=== PATIENT | female | born 1935 | race Caucasian/White ===

== ENCOUNTER 2020-08-09 17:19 | Inpatient (IN) | payer MEDICARE, BC ==
[~2020-08-09] VITALS: Ht 167.6 cm; Wt 75.7 kg
[2020-08-09 18:01] LABS: BASOPHILS % (AUTO) 0.8 % (0.0-2.0); EOSINOPHILS % (AUTO) 2.7 % (0.0-6.0); HEMATOCRIT 40 % (33-45); LYMPHOCYTES # (AUTO) 1.6 /CMM (0.8-4.8); LYMPHOCYTES % (AUTO) 46.2 % (20.0-44.0); MEAN CORPUSCULAR HGB CONC 33 g/dl (31.0-36.0); MEAN CORPUSCULAR VOLUME 96 fL (82-100); MONOCYTES # (AUTO) 0.5 /CMM (0.1-1.30); MONOCYTES % (AUTO) 14.3 % (2.0-12.0); NEUTROPHILS # (AUTO) 1.3 /CMM (1.8-8.9); PLATELET COUNT (AUTO) 200 /CMM (150-450); RED BLOOD CELL COUNT(AUTO) 4.18 MIL/uL (4.0-5.2); WHITE BLOOD COUNT (AUTO) 3.5 K/uL (4.3-11.0)
[2020-08-09 18:12] LABS: CALCIUM, SERUM 8.8 mg/dL (8.5-10.1); CARBON DIOXIDE 27 mmol/L (21-32); CHLORIDE 106 mmol/L (98-107); CREATININE 1.6 mg/dL (0.6-1.3); GLUCOSE 96 mg/dL (74-106); POTASSIUM 4.1 mmol/L (3.5-5.1); SODIUM SERUM 141 mmol/L (136-145); UREA NITROGEN, BLOOD 28 mg/dL (7-18)
[2020-08-09 18:26] LABS: ALANINE AMINOTRANSFERASE 14 U/L (12-78); ALBUMIN 3.3 g/dL (3.4-5.0); ALCOHOL, BLOOD < 3 mg/dL (0-0); ALKALINE PHOSPHATASE 94 U/L (46-116); ASPARTATE AMINOTRANSFERASE 16 U/L (15-37); BILIRUBIN,DIRECT 0.1 mg/dL (0.0-0.2); BILIRUBIN,TOTAL 0.4 mg/dL (0.2-1.0); TOTAL PROTEIN, SERUM 6.9 g/dL (6.4-8.2)
[2020-08-09 18:28] LABS: ACETAMINOPHEN < 2 ug/ml (10-30)
[2020-08-09] MEDS ORDERED: SENN-146 PO (18:37)
[2020-08-09] MEDS ORDERED: ABH GEL TOP (18:37)
[2020-08-09] MEDS ORDERED: FURO-145 PO (18:37)
[2020-08-09] MEDS ORDERED: CRAN425C6 PO (18:37)
[2020-08-09] MEDS ORDERED: ACET325T53 PO ×2 (18:37)
[2020-08-09] MEDS ORDERED: MENT1LOZ PO (18:37)
[2020-08-09] MEDS ORDERED: LIDO1ADH78 TD (18:37)
[2020-08-09] MEDS ORDERED: GABA-536 PO (18:37)
[2020-08-09] MEDS ORDERED: AMIO200T5 PO (18:37)
[2020-08-09] MEDS ORDERED: CITA20TA16 PO (18:37)
[2020-08-09] MEDS ORDERED: MELA3TAB41 PO (18:37)
[2020-08-09] MEDS ORDERED: QUET25TA PO (18:37)
[2020-08-09] MEDS ORDERED: ESOM20CA PO (18:37)
[2020-08-09] MEDS ORDERED: LORA-259 PO (18:37)
[2020-08-09] MEDS ORDERED: RIVA1PAT3 TD (18:37)
[2020-08-09] MEDS ORDERED: LACT-58 PO (18:37)
[2020-08-09] MEDS ORDERED: WARF4TAB72 PO (18:37)
[2020-08-09] MEDS ORDERED: MAGN1TAB4 PO (18:37)
[2020-08-09] MEDS ORDERED: MEMA10TA PO (18:37)
[2020-08-09] MEDS ORDERED: NITR100C PO (18:37)
[2020-08-09] MEDS ORDERED: ONDA4TAB5 PO (18:37)
[2020-08-09] MEDS ORDERED: WARF-68 PO (18:37)
[2020-08-09] MEDS ORDERED: POTA20TA83 PO (18:37)
[2020-08-09] MEDS ORDERED: QUET50TA PO (18:37)
[2020-08-09] MEDS ORDERED: TRAZ-182 PO (18:37)
[2020-08-09] MEDS ORDERED: PRAV20TA4 PO (18:37)
--- NOTE | 2020-08-09 18:40 | NUR ---
PER NURSING SUP, NO NEED TO REPEAT URINE AND COVID TEST AT THIS TIME. DR. FRENCH AWARE. PATIENT IS MEDICALLY CLEARED FOR GPS ADMISSION.
--- NOTE | 2020-08-09 18:54 | NUR ---
RUI RN AT BEDSIDE FOR EVAL.
--- NOTE | 2020-08-09 19:16 | NUR ---
COVID SWAB DONE AND SENT TO THE LAB
--- NOTE | 2020-08-09 19:41 | NUR ---
REPORT GIVEN TO BHAVIK ELISE FOR KATTY.
--- NOTE | 2020-08-09 20:17 | NUR ---
COVID NEGATIVE PER LAB
[2020-08-09 20:30] VITALS: BP 161/75
--- NOTE | 2020-08-09 20:30 | NUR ---
GPS RN NOTES PT ARRIVED VIA GURNEY ESCORTED BY TWO RNS. PT WAS BROUGHT IN TO ER BY SON PT IS FROM [place] [facility]IA [facility]. PT ON 5150 HOLD FOR DTS AND GD. PER HOLD PT WAS WAS VERBALLY ABUSIVE TO STAFF, THROWING THINGS AT STAFF, SCRATCHING STAFF AND REFUSING MEDICATIONS PT WAS UNABLE TO REDIRECTED. UPON FACE TO FACE ASSESSMENT PT IS NOTED TO BEING COOPERATIVE,,DISORGANIZED CONFUSED A/O X1-2. PT IS CURRENTLY LYING IN BED AWAKE HAS NO S/S OR COMPLAINTS OFPAIN. PT DISPLAYS NO APPARENT DISTRESS. PT BREATHING IS UNLABORED WITH EQUAL RISE AND FALL OF CHEST. PT IS ON ROOM AIR TOLERATING WELL. PT ASSISTED WITH TURNING AND REPOSITIONING NEEDED FOR COMFORT. PT BELONGINGS WERE INVENTORIED AND CHECKED FOR CONTRABAND. PT REQUESTED TO KEEP HER EARRINGS AND RING ON HER LEFT HAND. PT HAS NO NEEDS AT THIS TIME. PT DENIES ANY SI/HI AT THIS TIME. ALL OCNTRABAND REMOVED AND STORED IN PT LOCKER. PT SKIN ASSESSMENT COMPLETED. PT ORIENTED TO ROOM AND UNIT. PT EDUCATED ONT HE USE OF THE CALL COLBERT. PT BED SIDE RAILS ARE UP X2 FOR SAFTEY. PT BED IS LOCKED IN POSITION AND LOW WILL CONTINUE TO MONITOR PT Q15MIN WITH THE HELP OF NURSING STAFF TO MAINTAIN SAFETY. Addendum: 08/10/20 at 0156 by REED LINCOLN RN PT REFUSED TO SIGN PAPERWORK. PT ADVISED ON HOLD AND PT RIGHTS BOOKLET GIVEN. PT PERSON TO NOTIFY WILL BE CONTACTED IN THE MORNING.
[2020-08-09] MEDS ORDERED: BLOOD SUGAR DIAGNOSTIC 1 EACH STRIP IN ONE (21:00)
[2020-08-09] MEDS ORDERED: MAGNESIUM HYDROXIDE 30 ML UDC PO PRN (21:00)
[2020-08-09] MEDS ORDERED: MAG HYDROX/AL HYDROX/SIMETH 30 ML UDC PO PRN (21:00)
[2020-08-09 23:36] VITALS: BP 141/75
--- NOTE | 2020-08-10 06:39 | NUR ---
GPS RN NOTES ATTEMPTED TO CONTACT [facility]IBLE [employer] UNABLE TO CONTACT NO ONE PICKED UP THE PHONE. WILL ENDORSE TO DAY SHIFT TO TRY AGAIN.
[2020-08-10 06:50] LABS: ALBUMIN 3.2 g/dL (3.4-5.0); BILIRUBIN,TOTAL 0.7 mg/dL (0.2-1.0); CALCIUM, SERUM 8.7 mg/dL (8.5-10.1); CREATININE 1.2 mg/dL (0.6-1.3); TOTAL PROTEIN, SERUM 6.8 g/dL (6.4-8.2)
[2020-08-10 06:58] LABS: CHOLESTEROL 185 mg/dL (<200); HDL CHOLESTEROL 69 mg/dL (40-60); LDL 97 mg/dL (0-99); TRIGLYCERIDES 41 mg/dL (30-150)
[2020-08-10 08:00] VITALS: BP 159/77
--- NOTE | 2020-08-10 11:50 | NUR ---
RN-NOTES NOTED PATIENT ANGRY,SCREAMING AND YELLING THROWING HER TRAY ON THE FLOOR. REDIRECTED AND OFFERED ATIVAN BUT PATIENT REFUSED TROW THE MEDICATION ON THE FLOOR.
[2020-08-10] MEDS ORDERED: diphenhydrAMINE HCL 50 MG/ML VIAL IM ONE (12:30)
[2020-08-10] MEDS ORDERED: LORAZEPAM INJ 2 MG/ML VIAL IM ONE (12:30)
[2020-08-10] MEDS ORDERED: HALOPERIDOL LACTATE INJ 5 MG/ML VIAL IM ONE (12:30)
--- NOTE | 2020-08-10 12:31 | NUR ---
RN-NOTES DR. DE ANDA MADE AWARE OF PATIENT BEHAVIOR WITH T.O ORDERS. IM MEDICATIONS WAS ADMINISTERED AT LEFT AND RIGHT DELTOID WITH 3 STAFF ASSIST.
--- NOTE | 2020-08-10 13:10 | NUR ---
RN-NOTES END FINDER TWISTING DEPARTMENT ERIC IN THE UNIT MADE AWARE OF PATIENTS POLST AND ORDERED DNR/DNI. NOTED AND CARRIED OUT.
[2020-08-10 16:00] VITALS: BP 157/87
[2020-08-10] MEDS: RIVASTIGMINE TARTRATE 1.5 MG CAPSULE PO SCH (18:05)
[2020-08-10] MEDS: risperiDONE 1 MG TABLET PO SCH (18:05)
[2020-08-10] MEDS ORDERED: ACETAMINOPHEN 325 MG TABLET PO PRN (19:30)
--- NOTE | 2020-08-10 20:00 | NUR ---
GPS RN NOTE CALLED JUMA VIA OF [facility] (JUSTIN) AND VERIFIED PATIENT'S HOME MEDS: PATIENT IS TAKING PRAVSTATIN 20 20MG WITH NO ALLERGIC REACTIONS. PATIENT ALSO TAKING MACRODANTIN FOR UTI, NO END DATE. NOTIFIED CAMI FROM PHARMACY
[2020-08-10 20:25] VITALS: BP 150/82
[2020-08-10] MEDS ORDERED: WARFARIN SODIUM 2 MG TABLET PO SCH (21:00)
[2020-08-10] MEDS: GABAPENTIN 300 MG CAPSULE PO SCH (21:37)
[2020-08-10] MEDS: AMIODARONE HCL 200 MG TABLET PO SCH (21:38)
[2020-08-10] MEDS: ATORVASTATIN 10 MG TABLET PO SCH (21:41)
[2020-08-10] MEDS ORDERED: NITROFURANTOIN MACROCRYSTAL 100 MG CAPSULE PO SCH (22:00)
--- NOTE | 2020-08-10 23:40 | NUR ---
GPS RN NOTE - PRN MED PATIENT NOTED WITH AGITATION, YELLING, AND THROWING FOOD TO STAFF. NONPHARM INTERVENTIONS TAKEN. ADMINISTERED ATIVAN AND AMBIEN ORDERED. WILL CONTINUE TO MONITOR PATIENT'S BEHAVIOR
[2020-08-10] MEDS: TEMAZEPAM 7.5 MG CAPSULE PO PRN (23:41)
[2020-08-10] MEDS: LORAZEPAM 0.5 MG TABLET PO PRN (23:41)
[2020-08-11] MEDS: RIVASTIGMINE TARTRATE 1.5 MG CAPSULE PO SCH ×2 (05:41→17:24)
--- NOTE | 2020-08-11 06:10 | NUR ---
GPS RN NOTE - UA COLLECTED URINE SPECIMEN VIA STRAIGHT CATH. GAVE SPECIMEN TO INTERNAL WHOLESALER FROM LAB.
--- NOTE | 2020-08-11 06:57 | NUR ---
GPS RN CLOSING NOTE PATIENT SLEEPING IN BED ,A/OX2. TOLERATING ROOM AIR WELL WITH NO SOB IRRITABLE,UNCOOPERATIVE WITH CARE. NO SI/HI AT THIS TIME. DENIES PAIN, DISCOMFORT AT THIS TIME. SAFETY MEASURES IN PLACE: BED IN LOWEST LOCKED POSITION, SIDE RAILS UPX3, EDUCATED TO USE CALL LIGHT, BED ALARMS ON. ALL NEEDS ATTENDED AND ANTICIPATED. WILL ENDORSE CARE PLAN FOR MONITORING FOR SAFETY AND BEHAVIOR TO MORNING RN
[2020-08-11 08:00] VITALS: BP_SYST 159; BP_SYST 164; BP_DIAS 60; BP_DIAS 69
[2020-08-11 08:13] LABS: BILIRUBIN,URINE SMALL (NEGATIVE); COLOR,URINE YELLOW (YELLOW); LEUKOCYTE ESTERASE ,URINE NEGATIVE (NEGATIVE); NITRITE, URINE NEGATIVE (NEGATIVE); PH,URINE 5.5 (5.0-8.0); PROTEIN,URINE NEGATIVE (NEGATIVE); UGLUCOSE NEGATIVE (NEGATIVE); UROBILINOGEN,URINE 0.2 EU/dL (0.2)
[2020-08-11] MEDS: PANTOPRAZOLE 40 MG TABLET.DR PO SCH ×2 (08:28→10:22)
[2020-08-11 08:39] LABS: BACTERIA,URINE Rare /HPF (None Seen); RBC,URINE 0-2 /HPF (0-2); SQUAMOUS EPITHELIAL CELL,UR Few /HPF (None Seen); WBC,URINE 0-2 /HPF (0-3)
[2020-08-11] MEDS ORDERED: SENNOSIDES/DOCUSATE SODIUM 1 UDTAB TABLET PO SCH (09:00)
[2020-08-11] MEDS: FUROSEMIDE 20 MG TABLET PO SCH (10:21)
[2020-08-11] MEDS: MEMANTINE HCL 5 MG TABLET PO SCH (10:21)
[2020-08-11] MEDS: risperiDONE 1 MG TABLET PO SCH ×2 (10:21→21:35)
[2020-08-11] MEDS: POTASSIUM CHLORIDE 20 MEQ TAB.PRT.SR PO SCH (10:22)
[2020-08-11] MEDS: ACETAMINOPHEN 325 MG TABLET PO SCH ×3 (10:22→16:57)
[2020-08-11] MEDS: AMIODARONE HCL 200 MG TABLET PO SCH (10:22)
[2020-08-11] MEDS: ENSURE ENLIVE CHOC 237 ML CAN PO SCH ×3 (10:30→17:24)
--- NOTE | 2020-08-11 12:35 | NUR ---
Family Contact: SW contacted the pts son, Salvador ([phone]), and left a voicemail stating that the SW would like to discuss the pts treatment.
--- NOTE | 2020-08-11 16:01 | NUR ---
Family Contact: KIERSTEN contacted the pts son, Salvador ([phone]), and received collateral information. He stated that he is the DPOA and pt should return to [facility]. Addendum: 08/11/20 at 1601 by KIERSTEN BLACKWELL DPOA
--- NOTE | 2020-08-11 16:05 | NUR ---
Facility Contact: KIERSTEN contacted Keely ([phone]), from [facility], and she stated that she would need to assess the pt before she can return to the facility.
--- NOTE | 2020-08-11 16:12 | NUR ---
RN-NOTES HOTEL STAFF MEMBER ERIC IN THE UNIT AND MADE AWARE OF PATIENT INR RESULT TODAY WITH VERBAL ORDER TO CONT. COUMADIN 4MG P.O TODAY, D/C 2MG COUMADIN ORDER AND START COUMADIN 3MG P.O ON 08/12/20, 08/13/20,AND AN DPT/INR ON 07/2020. NOTED AND CARRIED OUT.
--- NOTE | 2020-08-11 16:33 | NUR ---
Initial Discharge Plan: Pt currently resides at [facility] located at [address] [place] [address]; [phone]. Per DPOA, he wants the pt to return. KIERSTEN will work with the pt and the MD regarding appropriate discharge planning. SW will form a safe and proper discharge.
[2020-08-11] MEDS ORDERED: WARFARIN SODIUM 2 MG TABLET PO SCH (17:00)
[2020-08-11 20:00] VITALS: BP 148/73
[2020-08-11] MEDS: ATORVASTATIN 10 MG TABLET PO SCH (21:35)
[2020-08-11] MEDS: GABAPENTIN 300 MG CAPSULE PO SCH (21:36)
[2020-08-12] MEDS: RIVASTIGMINE TARTRATE 1.5 MG CAPSULE PO SCH ×2 (06:00→17:12)
[2020-08-12 08:00] VITALS: BP 153/78
[2020-08-12] MEDS: ACETAMINOPHEN 325 MG TABLET PO SCH ×3 (08:16→16:23)
[2020-08-12] MEDS: ENSURE ENLIVE CHOC 237 ML CAN PO SCH ×3 (08:16→16:27)
[2020-08-12] MEDS: risperiDONE 1 MG TABLET PO SCH ×2 (08:17→20:38)
[2020-08-12] MEDS: FUROSEMIDE 20 MG TABLET PO SCH (08:17)
[2020-08-12] MEDS: PANTOPRAZOLE 40 MG TABLET.DR PO SCH (08:17)
[2020-08-12] MEDS: MEMANTINE HCL 5 MG TABLET PO SCH (08:17)
[2020-08-12] MEDS: POTASSIUM CHLORIDE 20 MEQ TAB.PRT.SR PO SCH (08:17)
[2020-08-12] MEDS: SENNOSIDES/DOCUSATE SODIUM 1 TAB TABLET PO SCH (08:20)
[2020-08-12 16:00] VITALS: BP 148/77
[2020-08-12] MEDS: WARFARIN SODIUM 1 MG TABLET PO SCH (16:25)
[2020-08-12 20:00] VITALS: BP 156/82
[2020-08-12] MEDS: ATORVASTATIN 10 MG TABLET PO SCH (21:53)
[2020-08-12] MEDS: GABAPENTIN 300 MG CAPSULE PO SCH (21:53)
[2020-08-13] MEDS: LORAZEPAM 0.5 MG TABLET PO PRN (05:20)
--- NOTE | 2020-08-13 05:22 | NUR ---
RN NOTES: ANXEITY PT. SCREAMING YELLING AGGRESSIVE ATIVAN 0.5 MG PO PRN GIVEN , WILL CONTINUE TO MONITOR.
[2020-08-13] MEDS: RIVASTIGMINE TARTRATE 1.5 MG CAPSULE PO SCH ×2 (06:29→17:48)
[2020-08-13 07:03] VITALS: BP 138/72
[2020-08-13 08:00] VITALS: BP 156/96
[2020-08-13] MEDS: POTASSIUM CHLORIDE 20 MEQ TAB.PRT.SR PO SCH (09:21)
[2020-08-13] MEDS: ENSURE ENLIVE CHOC 237 ML CAN PO SCH ×3 (09:21→16:52)
[2020-08-13] MEDS: AMIODARONE HCL 200 MG TABLET PO SCH (09:21)
[2020-08-13] MEDS: FUROSEMIDE 20 MG TABLET PO SCH (09:22)
[2020-08-13] MEDS: MEMANTINE HCL 5 MG TABLET PO SCH (09:22)
[2020-08-13] MEDS: SENNOSIDES/DOCUSATE SODIUM 1 TAB TABLET PO SCH (09:22)
[2020-08-13] MEDS: risperiDONE 1 MG TABLET PO SCH ×2 (09:22→21:18)
[2020-08-13] MEDS: ACETAMINOPHEN 325 MG TABLET PO SCH ×4 (09:22→17:19)
[2020-08-13 16:00] VITALS: BP 147/67
[2020-08-13] MEDS: WARFARIN SODIUM 1 MG TABLET PO SCH (17:19)
[2020-08-13 19:43] LABS: BASOPHILS % (AUTO) 0.2 % (0.0-2.0); EOSINOPHILS % (AUTO) 0.1 % (0.0-6.0); HEMATOCRIT 42 % (33-45); HEMOGLOBIN 13.7 g/dL (11.5-14.8); LYMPHOCYTES # (AUTO) 0.8 /CMM (0.8-4.8); LYMPHOCYTES % (AUTO) 9.8 % (20.0-44.0); MEAN CORPUSCULAR HGB CONC 33 g/dl (31.0-36.0); MEAN CORPUSCULAR VOLUME 95 fL (82-100); MONOCYTES # (AUTO) 0.7 /CMM (0.1-1.30); MONOCYTES % (AUTO) 8.1 % (2.0-12.0); NEUTROPHILS # (AUTO) 6.8 /CMM (1.8-8.9); NEUTROPHILS % (AUTO) 81.8 % (43.0-81.0); PLATELET COUNT (AUTO) 210 /CMM (150-450); RED BLOOD CELL COUNT(AUTO) 4.39 MIL/uL (4.0-5.2); WHITE BLOOD COUNT (AUTO) 8.3 K/uL (4.3-11.0)
[2020-08-13 19:52] LABS: ALBUMIN 3.6 g/dL (3.4-5.0); BILIRUBIN,TOTAL 0.6 mg/dL (0.2-1.0); CALCIUM, SERUM 9.3 mg/dL (8.5-10.1); CREATININE 1.1 mg/dL (0.6-1.3); POTASSIUM 3.8 mmol/L (3.5-5.1); TOTAL PROTEIN, SERUM 7.5 g/dL (6.4-8.2)
[2020-08-13 21:00] VITALS: BP 135/76
[2020-08-13] MEDS: ATORVASTATIN 10 MG TABLET PO SCH (21:18)
[2020-08-13] MEDS: GABAPENTIN 300 MG CAPSULE PO SCH (21:18)
[2020-08-14] MEDS: TEMAZEPAM 7.5 MG CAPSULE PO PRN (02:16)
--- NOTE | 2020-08-14 02:16 | NUR ---
GPS-RN NOTES: INSOMNIA PATIENT IS UNABLE TO SLEEP. PRN RESTORIL 7.5MG PO GIVEN. WILL CONTINUE TO MONITOR.
[2020-08-14] MEDS: RIVASTIGMINE TARTRATE 1.5 MG CAPSULE PO SCH ×2 (06:03→18:32)
[2020-08-14] MEDS: PANTOPRAZOLE 40 MG TABLET.DR PO SCH (07:36)
[2020-08-14 08:00] VITALS: BP 128/66
[2020-08-14] MEDS: MEMANTINE HCL 5 MG TABLET PO SCH (11:09)
[2020-08-14] MEDS: ENSURE ENLIVE CHOC 237 ML CAN PO SCH ×3 (11:09→17:10)
[2020-08-14] MEDS: risperiDONE 1 MG TABLET PO SCH (11:10)
[2020-08-14] MEDS: SENNOSIDES/DOCUSATE SODIUM 1 TAB TABLET PO SCH (11:10)
[2020-08-14] MEDS: ACETAMINOPHEN 325 MG TABLET PO SCH ×3 (11:10→17:10)
[2020-08-14] MEDS: FUROSEMIDE 20 MG TABLET PO SCH (11:11)
[2020-08-14] MEDS: POTASSIUM CHLORIDE 20 MEQ TAB.PRT.SR PO SCH (11:11)
[2020-08-14 15:53] VITALS: BP 117/52
[2020-08-14] MEDS: WARFARIN SODIUM 1 MG TABLET PO SCH (17:13)
[2020-08-14 20:00] VITALS: BP 104/52
[2020-08-14] MEDS: risperiDONE 0.25 MG TABLET PO SCH (20:30)
--- NOTE | 2020-08-14 21:30 | NUR ---
OMNICELL SYSTEM IS DOWN, UNABLE TO PULL OUT MEDICATIONS. CHAIN OF COMMAND INITIATED. NURSING ASSISTANT INFANT TODDLER TEACHER NOTIFIED. OMNICELL 24HOUR HELP DESK NOTIFIED, AWAITING DISPATCH STRUCTURAL SHOP HELPER.
--- NOTE | 2020-08-15 00:35 | NUR ---
pharmacy, [facility] notified regarding lack of access for medications, all medications given
[2020-08-15] MEDS: ATORVASTATIN 10 MG TABLET PO SCH ×2 (00:43→21:15)
[2020-08-15] MEDS: GABAPENTIN 300 MG CAPSULE PO SCH ×2 (00:43→22:38)
[2020-08-15] MEDS: RIVASTIGMINE TARTRATE 1.5 MG CAPSULE PO SCH ×4 (06:00→07:08)
--- NOTE | 2020-08-15 07:09 | NUR ---
rn note pt refused exelon 0600 explained importance, risk and benefits x2, pt still refused.
[2020-08-15 08:00] VITALS: BP 140/66
[2020-08-15] MEDS: ENSURE ENLIVE CHOC 237 ML CAN PO SCH ×3 (09:00→17:00)
--- NOTE | 2020-08-15 09:00 | NUR ---
gps actuarial science teacher: notes pt refused breakfast and am meds. reality orientation provided prn. pt wants to sleep.
--- NOTE | 2020-08-15 11:26 | NUR ---
Probable Cause Hearing: Pts 5250 hold was upheld for grave disability.
--- NOTE | 2020-08-15 11:26 | NUR ---
Facility Contact: KIERSTEN contacted Keely ([phone]), from [facility], and she stated that she would come assess the pt at 1pm for readmission.
--- NOTE | 2020-08-15 11:27 | NUR ---
Family Contact: KIERSTEN contacted the pts son, Salvador ([phone]), and informed him that the pt is doing better and that Sulema is going to come and assess the pt on to prepare for the pts discharge.
[2020-08-15] MEDS: AMIODARONE HCL 200 MG TABLET PO SCH (12:17)
[2020-08-15] MEDS: risperiDONE 0.25 MG TABLET PO SCH ×2 (12:17→21:15)
[2020-08-15] MEDS: PANTOPRAZOLE 40 MG TABLET.DR PO SCH (12:17)
[2020-08-15] MEDS: ACETAMINOPHEN 325 MG TABLET PO SCH ×3 (12:18→17:00)
[2020-08-15] MEDS: FUROSEMIDE 20 MG TABLET PO SCH (12:18)
[2020-08-15] MEDS: MEMANTINE HCL 5 MG TABLET PO SCH (12:18)
[2020-08-15] MEDS: POTASSIUM CHLORIDE 20 MEQ TAB.PRT.SR PO SCH (12:18)
[2020-08-15] MEDS: SENNOSIDES/DOCUSATE SODIUM 1 TAB TABLET PO SCH (12:18)
--- NOTE | 2020-08-15 12:18 | NUR ---
gps eating disorder psychologist: notes pt refused am meds, offered 3x, stated, "i am not taking any medications."
[2020-08-15 16:00] VITALS: BP 140/64
[2020-08-15 20:00] VITALS: BP 147/73
[2020-08-16] MEDS: RIVASTIGMINE TARTRATE 1.5 MG CAPSULE PO SCH ×2 (05:08→17:28)
[2020-08-16] MEDS: ACETAMINOPHEN 325 MG TABLET PO PRN ×2 (05:08→22:16)
--- NOTE | 2020-08-16 05:08 | NUR ---
GPS RN NOTE PATIENT C/O LEG PAIN. ADMINISTERED TYLENOL 650MG REQUESTED AND ORDERED. WILL CONTINUE TO REASSESS FOR PATIENT'S PAIN IN 30 MINUTES.
--- NOTE | 2020-08-16 07:30 | NUR ---
PT RECEIVED RESTING COMFORTABLY IN BED. NO S/S OR C/O PAIN OR DISTRESS NOTED. SIDE RAILS UP X2. WILL CONTINUE PLAN OF CARE.
[2020-08-16 08:00] VITALS: BP 141/66
[2020-08-16] MEDS: POTASSIUM CHLORIDE 20 MEQ TAB.PRT.SR PO SCH (08:52)
[2020-08-16] MEDS: FUROSEMIDE 20 MG TABLET PO SCH (08:53)
[2020-08-16] MEDS: PANTOPRAZOLE 40 MG TABLET.DR PO SCH (08:53)
[2020-08-16] MEDS: risperiDONE 0.25 MG TABLET PO SCH ×2 (08:53→21:26)
[2020-08-16] MEDS: MEMANTINE HCL 5 MG TABLET PO SCH (08:53)
[2020-08-16] MEDS: ACETAMINOPHEN 325 MG TABLET PO SCH ×3 (08:54→17:28)
[2020-08-16] MEDS: ENSURE ENLIVE CHOC 237 ML CAN PO SCH ×3 (09:04→17:28)
[2020-08-16] MEDS: SENNOSIDES/DOCUSATE SODIUM 1 TAB TABLET PO SCH (13:02)
[2020-08-16 16:00] VITALS: BP 159/71
--- NOTE | 2020-08-16 18:39 | NUR ---
CHANGE OF SHIFT REPORT PT RESTING COMFORTABLY IN GERICHAIR IN ACTIVITY ROOM. NO S/S OR C/O PAIN OR DISTRESS NOTED. PT KEPT CLEAN, DRY AND COMFORTABLE. NO SIGNIFICANT CHANGES SINCE PREVIOUS SHIFT. WILL GIVE REPORT TO SANA ELISE.
[2020-08-16 20:12] VITALS: BP 132/59
[2020-08-16] MEDS: TEMAZEPAM 7.5 MG CAPSULE PO PRN (21:26)
[2020-08-16] MEDS: GABAPENTIN 300 MG CAPSULE PO SCH (21:26)
[2020-08-16] MEDS: ATORVASTATIN 10 MG TABLET PO SCH (21:26)
[2020-08-17] MEDS: RIVASTIGMINE TARTRATE 1.5 MG CAPSULE PO SCH ×2 (05:13→17:08)
[2020-08-17 08:00] VITALS: BP 144/84
[2020-08-17] MEDS: PANTOPRAZOLE 40 MG TABLET.DR PO SCH (08:08)
[2020-08-17] MEDS: risperiDONE 0.25 MG TABLET PO SCH ×2 (08:08→20:44)
[2020-08-17] MEDS: MEMANTINE HCL 5 MG TABLET PO SCH (08:10)
[2020-08-17] MEDS: ACETAMINOPHEN 325 MG TABLET PO SCH ×3 (08:10→16:27)
[2020-08-17] MEDS: POTASSIUM CHLORIDE 20 MEQ TAB.PRT.SR PO SCH (08:10)
[2020-08-17] MEDS: FUROSEMIDE 20 MG TABLET PO SCH (08:10)
[2020-08-17] MEDS: AMIODARONE HCL 200 MG TABLET PO SCH (08:10)
[2020-08-17] MEDS: SENNOSIDES/DOCUSATE SODIUM 1 TAB TABLET PO SCH (08:15)
[2020-08-17] MEDS: ENSURE ENLIVE CHOC 237 ML CAN PO SCH ×3 (08:15→17:08)
--- NOTE | 2020-08-17 11:32 | NUR ---
Facility Contact: Keely ([phone]), from [facility], came to assess the pt and stated that a new Physicians Report needs to be filled out for the pt. KIERSTEN stated that she would start working on that.
[2020-08-17 16:00] VITALS: BP 147/68
[2020-08-17 19:39] VITALS: BP 134/64
[2020-08-17] MEDS: ATORVASTATIN 10 MG TABLET PO SCH (21:14)
[2020-08-17] MEDS: GABAPENTIN 300 MG CAPSULE PO SCH (21:14)
[2020-08-18] MEDS: TEMAZEPAM 7.5 MG CAPSULE PO PRN (02:29)
[2020-08-18] MEDS: RIVASTIGMINE TARTRATE 1.5 MG CAPSULE PO SCH ×2 (05:52→17:17)
[2020-08-18 08:00] VITALS: BP 138/69
[2020-08-18] MEDS: risperiDONE 0.25 MG TABLET PO SCH ×2 (08:34→21:00)
[2020-08-18] MEDS: PANTOPRAZOLE 40 MG TABLET.DR PO SCH (08:34)
[2020-08-18] MEDS: POTASSIUM CHLORIDE 20 MEQ TAB.PRT.SR PO SCH (08:35)
[2020-08-18] MEDS: ACETAMINOPHEN 325 MG TABLET PO SCH ×3 (08:35→17:00)
[2020-08-18] MEDS: MEMANTINE HCL 5 MG TABLET PO SCH (08:35)
[2020-08-18] MEDS: FUROSEMIDE 20 MG TABLET PO SCH (08:35)
[2020-08-18] MEDS: SENNOSIDES/DOCUSATE SODIUM 1 TAB TABLET PO SCH (08:36)
[2020-08-18] MEDS: ENSURE ENLIVE CHOC 237 ML CAN PO SCH ×3 (08:36→17:19)
[2020-08-18 16:00] VITALS: BP 138/65
[2020-08-18 20:37] VITALS: BP 134/74
[2020-08-18] MEDS: GABAPENTIN 300 MG CAPSULE PO SCH (21:00)
[2020-08-18] MEDS: ATORVASTATIN 10 MG TABLET PO SCH (21:00)
[2020-08-18] MEDS: ACETAMINOPHEN 325 MG TABLET PO PRN (23:29)
[2020-08-19] MEDS: RIVASTIGMINE TARTRATE 1.5 MG CAPSULE PO SCH ×2 (06:11→17:41)
[2020-08-19 08:00] VITALS: BP 110/65
[2020-08-19] MEDS: risperiDONE 0.25 MG TABLET PO SCH ×2 (08:53→20:00)
[2020-08-19] MEDS: PANTOPRAZOLE 40 MG TABLET.DR PO SCH (08:53)
[2020-08-19] MEDS: MEMANTINE HCL 5 MG TABLET PO SCH (08:53)
[2020-08-19] MEDS: POTASSIUM CHLORIDE 20 MEQ TAB.PRT.SR PO SCH (08:53)
[2020-08-19] MEDS: FUROSEMIDE 20 MG TABLET PO SCH (08:54)
[2020-08-19] MEDS: AMIODARONE HCL 200 MG TABLET PO SCH (08:55)
[2020-08-19] MEDS: ENSURE ENLIVE CHOC 237 ML CAN PO SCH ×3 (08:56→17:41)
[2020-08-19] MEDS: ACETAMINOPHEN 325 MG TABLET PO SCH ×3 (08:56→17:41)
[2020-08-19] MEDS: SENNOSIDES/DOCUSATE SODIUM 1 TAB TABLET PO SCH (08:56)
[2020-08-19 16:00] VITALS: BP 139/73
--- NOTE | 2020-08-19 18:17 | NUR ---
MED COMPLIANT AND COOPERATIVE.
[2020-08-19 20:00] VITALS: BP 136/52
[2020-08-19 20:12] VITALS: BP 136/52
[2020-08-19] MEDS: GABAPENTIN 300 MG CAPSULE PO SCH (22:10)
[2020-08-19] MEDS: ATORVASTATIN 10 MG TABLET PO SCH (22:10)
--- NOTE | 2020-08-19 22:30 | NUR ---
GPS RN NOTES PULLED OUT RESTORIL ACCIDENTALLY FOR WRONG PATIENT. RETURNED RESTORIL TO [facility].
[2020-08-20] MEDS: RIVASTIGMINE TARTRATE 1.5 MG CAPSULE PO SCH ×2 (06:04→17:37)
[2020-08-20] MEDS: ACETAMINOPHEN 325 MG TABLET PO SCH ×3 (06:05→16:20)
--- NOTE | 2020-08-20 06:05 | NUR ---
GPS RN NOTES PATIENT ASKED FOR TYLENOL AT THIS TIME. 0900 AM TYLENOL GIVEN WITH 0600 O'CLOCK MEDICATION. Addendum: 08/20/20 at 611 by MICA LOVE RN GPS RN NOTES PATIENT ASKED FOR TYLENOL AT THIS TIME. 0900 AM TYLENOL GIVEN WITH 0600 O'CLOCK MEDICATION. COMPLAINING OF MILD PAIN AFTER POSITION CHANGE AND GOWN CHANGE.
--- NOTE | 2020-08-20 06:55 | NUR ---
GPS RN CLOSING NOTE PATIENT IN BED WITH EYES CLOSED, EASY TO AROUSE. NO S/S OF DISTRESS. NO C/O PAIN KEHINDE. ALL NEEDS ATTENDED. SCHED MEDS ADMINISTERED. SAFETY KEPT THE WHOLE SHIFT. DID NOT REPORT ANY SUICIDAL IDEATION OR HOMICIDAL IDEATION. NO SIGNIFICANT CHANGE SINCE LAST SHIFT. WILL ENDORSE CARE TO MORNING RN.
[2020-08-20 07:05] LABS: BASOPHILS % (AUTO) 0.5 % (0.0-2.0); EOSINOPHILS % (AUTO) 3.1 % (0.0-6.0); HEMATOCRIT 37 % (33-45); HEMOGLOBIN 12.2 g/dL (11.5-14.8); LYMPHOCYTES # (AUTO) 1.5 K/uL (0.8-4.8); LYMPHOCYTES % (AUTO) 30.9 % (20.0-44.0); MEAN CORPUSCULAR HGB CONC 33 g/dl (31.0-36.0); MEAN CORPUSCULAR VOLUME 96 fL (82-100); MONOCYTES # (AUTO) 0.6 K/uL (0.1-1.30); MONOCYTES % (AUTO) 11.7 % (2.0-12.0); NEUTROPHILS # (AUTO) 2.6 K/uL (1.8-8.9); NEUTROPHILS % (AUTO) 53.8 % (43.0-81.0); PLATELET COUNT (AUTO) 194 K/uL (150-450); RED BLOOD CELL COUNT(AUTO) 3.88 MIL/uL (4.0-5.2); WHITE BLOOD COUNT (AUTO) 4.8 K/uL (4.3-11.0)
[2020-08-20 07:41] LABS: ALBUMIN 2.8 g/dL (3.4-5.0); BILIRUBIN,TOTAL 0.5 mg/dL (0.2-1.0); POTASSIUM 4.1 mmol/L (3.5-5.1); TOTAL PROTEIN, SERUM 6.3 g/dL (6.4-8.2)
[2020-08-20 08:00] VITALS: BP 130/63
[2020-08-20] MEDS: PANTOPRAZOLE 40 MG TABLET.DR PO SCH (08:13)
[2020-08-20] MEDS: risperiDONE 0.25 MG TABLET PO SCH ×2 (08:14→20:00)
[2020-08-20] MEDS: FUROSEMIDE 20 MG TABLET PO SCH (08:14)
[2020-08-20] MEDS: MEMANTINE HCL 5 MG TABLET PO SCH (08:14)
[2020-08-20] MEDS: POTASSIUM CHLORIDE 20 MEQ TAB.PRT.SR PO SCH (08:15)
[2020-08-20] MEDS: ENSURE ENLIVE CHOC 237 ML CAN PO SCH ×3 (08:15→16:20)
[2020-08-20] MEDS: AMIODARONE HCL 200 MG TABLET PO SCH (08:18)
[2020-08-20] MEDS: SENNOSIDES/DOCUSATE SODIUM 1 TAB TABLET PO SCH (08:18)
[2020-08-20 16:00] VITALS: BP 130/50
[2020-08-20 20:27] VITALS: BP 161/74
[2020-08-20] MEDS: LORAZEPAM 0.5 MG TABLET PO PRN (20:30)
[2020-08-20] MEDS: ATORVASTATIN 10 MG TABLET PO SCH (21:18)
[2020-08-20] MEDS: GABAPENTIN 300 MG CAPSULE PO SCH (21:19)
[2020-08-20] MEDS: TEMAZEPAM 7.5 MG CAPSULE PO PRN (21:20)
[2020-08-21] MEDS: RIVASTIGMINE TARTRATE 1.5 MG CAPSULE PO SCH ×2 (06:33→18:10)
[2020-08-21 08:00] VITALS: BP 121/66
[2020-08-21] MEDS: risperiDONE 0.25 MG TABLET PO SCH ×2 (08:13→20:48)
[2020-08-21] MEDS: ACETAMINOPHEN 325 MG TABLET PO SCH ×3 (08:13→16:41)
[2020-08-21] MEDS: FUROSEMIDE 20 MG TABLET PO SCH (08:14)
[2020-08-21] MEDS: MEMANTINE HCL 5 MG TABLET PO SCH (08:14)
[2020-08-21] MEDS: POTASSIUM CHLORIDE 20 MEQ TAB.PRT.SR PO SCH (08:14)
[2020-08-21] MEDS: PANTOPRAZOLE 40 MG TABLET.DR PO SCH (08:14)
[2020-08-21] MEDS: ENSURE ENLIVE CHOC 237 ML CAN PO SCH ×3 (08:24→16:41)
--- NOTE | 2020-08-21 09:00 | NUR ---
RN NOTE- CONFUSED INTERACTIVE FLAT AFFECT MED COMPLIANT PO INTAKE GOOD THIS MORNING
[2020-08-21] MEDS: SENNOSIDES/DOCUSATE SODIUM 1 TAB TABLET PO SCH (09:36)
--- NOTE | 2020-08-21 14:05 | NUR ---
Facility Contact: Keely ([phone]), from [facility], and SW informed her that she is just waiting for the chest x ray results and she will send the whole physicians report.
--- NOTE | 2020-08-21 14:32 | NUR ---
Family Contact: SW contacted the pts son, Salvador ([phone]), and left a voicemail stating that the pt is going to be discharged tomorrow and asked for a call back.
--- NOTE | 2020-08-21 15:48 | NUR ---
Family Contact: SW contacted the pts son, Salvador ([phone]), and left a voicemail stating that the pt is going to be discharged tomorrow and asked for a call back.
[2020-08-21 16:00] VITALS: BP 118/60
[2020-08-21 20:00] VITALS: BP 144/72
[2020-08-21] MEDS: ATORVASTATIN 10 MG TABLET PO SCH (21:36)
[2020-08-21] MEDS: GABAPENTIN 300 MG CAPSULE PO SCH (21:36)
[2020-08-22] MEDS: RIVASTIGMINE TARTRATE 1.5 MG CAPSULE PO SCH (06:21)
[2020-08-22] MEDS: PANTOPRAZOLE 40 MG TABLET.DR PO SCH (07:52)
[2020-08-22] MEDS: risperiDONE 0.25 MG TABLET PO SCH (07:52)
[2020-08-22 08:00] VITALS: BP 121/76
[2020-08-22] MEDS: ACETAMINOPHEN 325 MG TABLET PO SCH (08:11)
[2020-08-22] MEDS: POTASSIUM CHLORIDE 20 MEQ TAB.PRT.SR PO SCH (08:11)
[2020-08-22 08:12] VITALS: BP 121/76
[2020-08-22] MEDS: ENSURE ENLIVE CHOC 237 ML CAN PO SCH (08:12)
[2020-08-22] MEDS: AMIODARONE HCL 200 MG TABLET PO SCH (08:12)
[2020-08-22] MEDS: FUROSEMIDE 20 MG TABLET PO SCH (08:13)
[2020-08-22] MEDS: MEMANTINE HCL 5 MG TABLET PO SCH (08:13)
[2020-08-22] MEDS: SENNOSIDES/DOCUSATE SODIUM 1 TAB TABLET PO SCH (08:14)
--- NOTE | 2020-08-22 08:27 | NUR ---
Facility Contact: KIERSTEN faxed the Physicians Report to [facility] with attn to Keely to the fax number: [phone].
--- NOTE | 2020-08-22 08:27 | NUR ---
Family Contact: Pts son, Salvador ([phone]), contacted the SW and stated that he will arrive around 11am today to pick the pt up.
--- NOTE | 2020-08-22 11:25 | NUR ---
MACHINIST NOTE: 84 YEAR OLD FEMALE DISCHARGED TO [facility] IN STABLE CONDITION. VSS, AFEBRILE NO SOB NOTED. PT A+OX2, ABLE TO MAKE NEEDS KNOWN. PT IS CALM AND COOPERATIVE. PT NOT AMBULATORY AND INCONTINENT OF URINE AND BOWEL. PT INDEPENDENT WITH PO INTAKE. PT IS COMPLIANT WITH MEDICATION ADMINISTRATION AND PLAN OF CARE. PSYCHIATRIC CARE PLAN GOALS MET. MEDICAL TREATMENT PLANS DEFERRED FOR CONTINUITY OF CARE. MEDICATIONS RECONCILED WITH DR. MCFARLAND AND DR. DE ANDA. PSYCHIATRIC MEDICATIONS CALLED IN TO [facility] TO MAICOL. TREATMENT PLAN DISCUSSED WITH SON KLEVER PENA. SON VERBALIZED AGREEMENT. PT LEFT THE UNIT VIA WHEELCHAIR AT 1125. SON KLEVER PENA SIGNED CONTINUITY OF CARE ADVISEMENT AND ACKNOWLEDGEMENT.
--- NOTE | 2020-08-22 11:27 | NUR ---
Discharge Note: Pt will be discharged to [facility] located at [address] [place] [address]; ([phone]). Pts son, Salvador ([phone]), will pick the pt up around 11am and was notified of the discharge. Upon discharge, the pt appears to be alert and oriented x3 (time, place, and self). Pt appears to be in a depressed mood and presents with a calm mood. Pt denies both suicidal and homicidal ideation as well as auditory and visual hallucinations. Pt appears to be ambulatory with an unsteady gait. Pt appears to be well groomed and appropriately dressed. Pt will be under the care of psychiatrist, Dr. Brent Stuart, located at [address] [place] [address]; . Pt will also be under the care of homicide squad lieutenant, Dr. Dolores Espinoza, located at [id number] [place] [address], [address] [address]; ([phone]). Pts son stated that he will make pts follow up appointment with the psychiatrist and he stated that the pts homicide squad lieutenant meets with the pt at the facility. The multidisciplinary exit care form was done, printed, signed, and given to the patient.
== END 2020-08-22 11:25 | DRG 885 ==
LOC: ER 17:27 → GPS 20:09
PROVIDERS: ADMIT Psychiatry & Neurology Psychiatry
DX: F29 Unspecified psychosis not due to a substance or known physiological condition (principal); N17.0 Acute kidney failure with tubular necrosis; N18.9 Chronic kidney disease, unspecified; F03.90 Unspecified dementia, unspecified severity, without behavioral disturbance, psychotic disturbance, mood disturbance, and anxiety; F41.9 Anxiety disorder, unspecified; Z87.440 Personal history of urinary (tract) infections; Z79.899 Other long term (current) drug therapy; Z20.822 Contact with and (suspected) exposure to COVID-19; I12.9 Hypertensive chronic kidney disease with stage 1 through stage 4 chronic kidney disease, or unspecified chronic kidney disease; Z66 Do not resuscitate; Z79.01 Long term (current) use of anticoagulants; Z87.898 Personal history of other specified conditions; K21.9 Gastro-esophageal reflux disease without esophagitis; I48.91 Unspecified atrial fibrillation; Z73.6 Limitation of activities due to disability; M79.2 Neuralgia and neuritis, unspecified
CPT/HCPCS: 36415; 71045-TC; 80048-TC; 80053-TC; 80061-TC; 80076-TC; 81001; 82962-TC; 83735-TC; 85025-TC; 85610-TC; 87081-TC; 97112-TC; 97116-TC; 97530-TC; C9803; G0480; J1200; J1630; J2060